=== PATIENT | male | born 1965 | race Caucasian/White ===

== ENCOUNTER 2021-05-25 23:43 | Emergency (ER) | payer OTHER ==
[2021-05-26] MEDS ORDERED: LIDOCAINE/EPI 2% 1:100,00 (XYLOCAINE) 20 ML VIAL INJ ONE (00:15)
[2021-05-26] MEDS ORDERED: TETANUS & DIPHTHERIA TOX,ADULT 0.5 ML (TENIVAC) IM ONE (00:15)
--- NOTE | 2021-05-26 00:24 | ED Fall/Injury ---
General Chief Complaint: Trauma-Non Activation Stated Complaint: FALL Nursing Triage Note: Pt states he fell down the stairs in his house and hit his head. Pt denies loc and is alert and oriented on arrival. Pt presents with a laceration to his forehead and right wrist pain History of Present Illness Date Seen by Provider: May 26, 2021 Time Seen by Provider: 23:50 Initial Comments 55-year-old male is here with complaints of a fall down the stairs after he tripped on a toy, which occurred today prior to coming to the ER. Patient complains of pain and swelling to his right wrist. Patient also has a lacer ation on his forehead on the left side. Denies LOC, blurry vision, hearing disturbances, dizziness, headache, neck pain. Patient does not take a blood thinner. Patient is left-hand dominant. Allergies and Home Medications Allergies Coded Allergies: No Known Drug Allergies (Unverified , 05/25/21) Patient Home Medication List Home Medication List Reviewed: Yes Review of Systems Review of Systems Constitutional: no symptoms reported Eyes: No Symptoms Reported Ears, Nose, Mouth, Throat: no symptoms reported Respiratory: no symptoms reported Cardiovascular: no symptoms reported Gastrointestinal: no symptoms reported Genitourinary: no symptoms reported Musculoskeletal: joint pain Skin: other (laceration forehead) Psychiatric/Neurological: No Symptoms Reported Past Yjtiulp-[id number] Hx Patient Social History Tobacco Use?: No Use of E-Cig and/or Vaping dev: No Substance use?: No Alcohol Use?: No Pt feels they are or have been: No Physical Exam Vital Signs Vital Signs - First Documented 05/25/21 23:56 Pulse 73 Resp 18 B/P (MAP) 158/95 (116) Pulse Ox 97 O2 Delivery Room Air Capillary Refill : Less Than 3 Seconds Height, Weight, BMI Height: '" Weight: lbs. oz. kg; BMI Method: General Appearance: WD/WN, no apparent distress HEENT: PERRL/EOMI, normal ENT inspection, TMs normal Neck: non-tender, full range of motion, supple, normal inspection Respiratory: chest non-tender, lungs clear Gastrointestinal: non tender, soft Extremities: normal range of motion, other (RIGHT WRIST: swelling present on dorsal wrist, mild bruising as well. NV bundle intact. ROM unrestricted. Tenderness middle of wrist) Neurologic/Psychiatric: area mechanic II-XII nml as tested, no motor/sensory deficits, alert, normal mood/affect, oriented x 3 Skin: normal color, other (Laceration to left forehead, 5.5cm in length, deep but not affecting muscles. EOM movement and forehead movement normal. Clean wound, no foreign body) Procedures/Interventions Wound Location: Face (left forehead above eyebrow) Wound's Depth, Shape: superficial (into subcutaneous tissue), irregular, contused tissue, bone (normal, no fractures) Wound Explored: no foreign body removed Irrigated w/ Saline (ccs): 20 Betadine Prep?: No Anesthesia: Lidocaine w/ Epi (7cc) Wound Debrided: minimal Suture: Ethlion Suture Size: 4-0, 5-0 Number of Sutures: 15 Sterile Dressing Applied?: Yes Progress/Results/Core Measures Results/Orders My Orders Orders - KAREEN SANTANA MD Ct Head/Maxillofacial Wo (05/25/21 23:57) Wrist 3 View Right (05/25/21 23:57) Tetanus/Diphtheria Inj (Adult) (Tenivac (05/26/21 00:15) Lidocaine/Epi 2% 1:100,000 (Xylocaine/Ep (05/26/21 00:15) Medications Given in ED Current Medications Medications Dose Ordered Sig/Cris Route Start Time Stop Time Status Last Admin Dose Admin Lidocaine/ Epinephrine 20 ml ONCE ONCE INJ 05/26/21 00:15 05/26/21 00:16 DC 05/26/21 00:13 20 ML Tetanus/ Diphtheria Toxoids 0.5 ml ONCE ONCE IM 05/26/21 00:15 05/26/21 00:16 DC 05/26/21 00:14 0.5 ML Vital Signs/I&O 05/25/21 23:56 Pulse 73 Resp 18 B/P (MAP) 158/95 (116) Pulse Ox 97 O2 Delivery Room Air Blood Pressure Mean: 116 Progress Progress Note : Progress Note 1. FALL & FOREHEAD LACERATION: - CT HEAD & MAXILLOFACIAL: normal - Tetanus shot STAT - Lac repair:see procedure note, 15 interrupted sutures placed . Pt tolerated well - return in 10 days for suture removal - Wound care instructions given - Augmentin BID for 7 days for prophylaxis since deep wound - Concussion precautions given. No symptoms of concussion at this time. 2. RIGHT WRIST - XR RIGHT WRIST: no fracture - Ice/ NSAID - MOI bandage - F/u with PCP office -Advised that occasionally fractures may only appear on x-ray a week or so after the initial injury, and if pain and symptoms persist, repeat x-ray will be needed in 7 to 10 days. Diagnostic Imaging Diagonstic Imaging: Xray, CT Plain Films/CT/US/NM/MRI: facial bones, head, other (wrist, right) Comments XR RIGHT WRIST: no fracture CT HEAD & MAXILLOFACIAL: no bleed or fracture Reviewed: Reviewed [place] Study (CT), Reviewed by Me (XR) Departure Impression Primary Impression: Fall (on) (from) other stairs and steps, initial encounter Additional Impressions: Laceration of forehead without complication Qualified Codes: S01.81XA - Laceration without foreign body of other part of head, initial encounter Right wrist sprain Qualified Codes: S63.501A - Unspecified sprain of right wrist, initial encounter Disposition: HOME, SELF-CARE Condition: Improved Departure-Patient Inst. Referrals: NO,LOCAL PHYSICIAN (PCP/Family) Primary Care Physician Patient Instructions: Wound Care ED, Wrist Sprain (DC), Laceration Repair With Stitches (DC), Concussion, Adult (DC) Add. Discharge Instructions: - Lac repair:see procedure note, 15 interrupted sutures placed . Pt tolerated well - return in 10 days for suture removal - Wound care instructions given - Concussion precautions given. No symptoms of concussion at this time. - F/u with PCP as needed - Ice/ NSAID - Do not sleep flat for the next 48 hours. Expect facial swelling in the morning. Ice. -Advised that occasionally fractures may only appear on x-ray a week or so after the initial injury, and if pain and symptoms persist, repeat x-ray will be needed in 7 to 10 days. - Augmentin BID for 7 days for prophylaxis since deep wound All discharge instructions reviewed with patient and/or family. Voiced understa nding. Scripts Amoxicillin/Potassium Clav (Augmentin 500-125 Tablet) 1 Each Tablet 1 EACH PO BID for 7 Days, #14 TAB Prov: KAREEN SANTANA MD 05/26/21 KAREEN SANTANA MD May 26, 2021 00:24
[2021-05-26 01:25] VITALS: BP 158/95
[2021-05-26] MEDS ORDERED: AMOX-355 PO (01:28)
--- NOTE | 2021-05-26 07:14 | Diagnostic Imaging Report ---
INDICATION: Fall down stairs. Right wrist pain. FINDINGS: 3 views. There is avulsion fracture noted along the triquetrum dorsally. Carpal bones are otherwise intact. Radiocarpal joints in good alignment. IMPRESSION: Avulsion injury of the triquetrum noted along the dorsum of the wrist. Dictated by: Dictated on workstation # [id number]
--- NOTE | 2021-05-26 07:16 | Diagnostic Imaging Report ---
PROCEDURE: CT head and maxillofacial without contrast. TECHNIQUE: Multiple contiguous axial images were obtained through the head and facial bones without the use of intravenous contrast. Auto Exposure Controls were utilized during the CT exam to meet ALARA standards for radiation dose reduction. INDICATION: Fell down stairs. Facial laceration. CT HEAD: There is no intracranial hemorrhage. The ventricles and cortical gyral pattern are normal. No mass effect. Basal cisterns are clear. No extra-axial fluid collection. Mastoid air cells and paranasal sinuses are clear. No calvarial fracture. IMPRESSION: Negative CT head without contrast. CT FACIAL BONES. There is a laceration over the left frontal region. No evidence of associated calvarial fracture. Paranasal sinuses are well-aerated and clear. The orbital rims are intact. Temporomandibular joints are in good alignment. IMPRESSION: Laceration of the left frontal scalp with no bony abnormalities demonstrated. Dictated by: Dictated on workstation # [id number]
== END 2021-05-26 01:30 | disposition home or self-care (01) ==
LOC: ER FS 23:49
DX: S01.81XA Laceration without foreign body of other part of head, initial encounter (principal); S63.501A Unspecified sprain of right wrist, initial encounter; W10.8XXA Fall (on) (from) other stairs and steps, initial encounter
CPT/HCPCS: 12013; 70450; 70486; 73110; 90714